=== PATIENT | female | born 1990 | race African-American/Black ===

== ENCOUNTER 2024-07-29 15:55 | Emergency (ER) | payer OTHER ==
[~2024-07-29] VITALS: Ht 175.3 cm; Wt 78.0 kg
[2024-07-29 16:01] VITALS: O2SAT 100
[2024-07-29 16:31] LABS: CHLORIDE 107 mEq/L (98-107); POTASSIUM 3.7 mEq/L (3.5-5.1); SODIUM 141 mEq/L (136-145)
[2024-07-29 16:32] LABS: CARBON DIOXIDE 29 mEq/L (21-32)
[2024-07-29 16:33] LABS: CALCIUM 9.5 mg/dL (8.7-10.4)
[2024-07-29 16:37] LABS: GLUCOSE 104 mg/dL (70-105); UREA NITROGEN BLOOD 7 mg/dL (9-23)
[2024-07-29 16:41] LABS: BASOPHILS % 0.2 % (0.0-2.0); EOSINOPHILS % 1.6 % (0.0-5.0); HEMATOCRIT. 35.2 % (36.0-48.0); HEMOGLOBIN. 11.8 g/dL (12.0-16.0); LYMPHOCYTES % 33.2 % (20.0-50.0); MEAN CORPUSCULAR HGB CONC 33.5 g/dL (31.0-37.0); MEAN CORPUSCULAR VOLUME 89.6 fL (81.0-99.0); MEAN PLATELET VOLUME 7.7 fl (7.4-10.4); MONOCYTES % 9.8 % (2.0-8.0); NEUTROPHILS % 55.2 % (40.0-76.0); PLATELET 221 x1000/uL (130-400); RED BLOOD CELL COUNT 3.93 mill/uL (4.2-5.4); RED CELL DISTRIBUTION WIDTH 13.3 % (11.6-14.6); WHITE BLOOD COUNT 4.2 x1000/uL (4.5-11.0)
[2024-07-29] MEDS: RHO(D) IMMUNE GLOBULIN 300 MCG/SYR IM ONE (20:46)
[2024-07-29 20:54] VITALS: BP 130/72; PULSE 80; RESP 18; TEMP 36.61404; O2SAT 100
== END 2024-07-29 20:55 | disposition home or self-care (01) ==
LOC: ER 15:55
DX: O26.891 Other specified pregnancy related conditions, first trimester (principal); R10.2 Pelvic and perineal pain; Z3A.01 Less than 8 weeks gestation of pregnancy
CPT/HCPCS: 36415; 36430; 76801; 80048; 84702; 85025; 86850; 86900; 90384; 99285

== ENCOUNTER 2024-07-31 10:21 | Emergency (ER) | payer OTHER ==
[~2024-07-31] VITALS: Ht 170.2 cm; Wt 90.7 kg
[2024-07-31 10:27] VITALS: O2SAT 100
[2024-07-31 11:05] VITALS: BP 115/67; PULSE 74; RESP 16; TEMP 37.05852; O2SAT 100
== END 2024-07-31 11:15 | disposition home or self-care (01) ==
LOC: ER 10:21
DX: O03.4 Incomplete spontaneous abortion without complication (principal)
CPT/HCPCS: 99281